=== PATIENT | female | born 1985 | race Caucasian/White ===

== ENCOUNTER 2025-06-07 02:30 | Day surgery (SDC) | payer OTHER, SELFPAY ==
[2025-05-26 10:44] VITALS: BMI 43.9
--- OUTSIDE RECORDS SUMMARY | 2025-06-07 02:31 | XMS_ITS | Encounter Summary ---
Author Organization [facility] Address [address] [place] [address] Care Team Providers Care Fisher Pot Name Role Phone Unavailable Primary Care Provider Unavailabl e Encounter Details Date Type Department Care Team (Latest Contact Info) Description 07/19/2008 Outpatient Historical [facility], [address] Heydi Corbett MD NO ADDRESS ON FILE Screening for Malignant Neoplasm of the Cervix Social History Tobacco Use Types Packs/Day Years Used Date Smoking Tobacco: Never Alcohol Use Standard Drinks/Week Comments No 0 (1 standard drink = 0.6 oz pur e alcohol) Comments No Sex and Gender Information Value Date Recorded Sex Assigned at Not on file 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
--- OUTSIDE RECORDS SUMMARY | 2025-06-07 02:31 | XMS_ITS | Encounter Summary ---
Author Organization [employer] Address 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 DIFFICILE DETECTION Routine 8 3:11 PM CARROTER FECAL LEUKOCYTES STAIN Routine 8 3:11 PM CARROTER OVA AND PARASITE SCREEN Routine 08/09/2008 3:11 PM CARROTER CBC WITH DIFFERENTIAL Stat 08/09/2008 2:54 PM CARROTER C-REACTIVE PROTEIN Stat 08/09/2008 2: 54 PM CARROTER TSH Stat 08/09/2008 2:54 PM CARROTER IGA Stat 08/09/2008 2:54 PM CARROTER COMPREHENSIVE METABOLIC PANEL Stat 08/09/2008 2:54 PM CARROTER POC , URINE Routine 08/09/2008 1:42 PM CARROTER documented in this encounter Results * PATHOLOGY (08/09/2008 3:21 PM CARROTER) FINAL REPORT [facility] [address], [place] [address] Patient: GI TERRAZAS : 1985 Procedure Date: 08/09/2008 Accession Date: 08/09/2008 Case No: [id number] Ordering Dr: AMY STEPHENSON Case types AW, BW, FW, NW and SH are performed by [facility], [place], [place] SURGICAL PATHOLOGY & NON-GYNECOLOGIC CYTOPATHOLOGY REPORT DIAGNOSIS SMALL INTESTINE, BIOPSY: - NO SIGNIFICANT HISTOPATHOLOGIC ABNORMALITY. LARGE INTESTINE, RANDOM, BIOPSY: - NO SIGNIFICANT HISTOPATHOLOGIC ABNORMALITY. Specimen Description: (1) Terminal ileum biopsy; (2) random colon biopsy. Operative Procedure: Colonoscopy. Patient Information/Histor y/Diagnosis: (1) and (2) Chronic diarrhea. Please look for collagenous colitis, microscopic colitis. Gross: Received are two containers labeled Gi Terrazas. Received in the first container, additionally labeled terminal ileum biopsy, is a 0.3 x 0.2 x 0.1-cm lowry tissue fragment. It is submitted in block A1. Received in the second container labeled random colon biopsy are five lowry tissue fragments ranging from 0.1 to 0.6 cm. All are submitted in block B1. [facility] 08.09.2008 04:07 pm Microscopic: The slides are labeled [id number] and Gi Terrazas. The terminal ileum biopsy shows no significant histopathologic abnormality. The inflammatory composition within the lamina propria appears appropriate. A single neutrophil is identified in a villous tip, but no additional active inflammation is seen. There is no blunting or distortion of the normal villous architecture. No inflammatory lesion or intestinal parasites are seen. The random colon biopsy consists of multiple mucosal fragments showing no significant histopathologic abnormality. The inflammatory composition within the lamina propria appears appropriate. No active inflammation or granulomas are seen. There are areas of interstitial hemorrhage, but ischemic changes are not evident. There is no significant architectural distortion or thickening of the subepithelial collagen plate. No hyperplastic or adenomatous changes are identified. GL/SEBASTIEN 08.10.2008 12:26 pm Staging Form: No. ELECTRONIC SIGNATURE FOR MARIAN LAGOS M.D.- 08/10/08 03:17 pm INTERFACE SYSTEM Specimen of unknown material (specimen) 08/09/2008 3:21 PM CARROTER Amy Stephenson MD PATHOLOGY/CYTOLOGY ORDERABLES E dited Performing Organization Address City/[facility] Co de Phone Number INTERFACE SYSTEM Refer to clinic/hospital department * OVA AND PARASITE SCREEN (08/09/2008 3:11 PM CARROTER) PRELIMINARY REPORT Pending [facility] FINAL REPORT Concentration : No ova or parasites seen. Trichrome: No ova or parasites seen. [facility] Stool specimen (specimen) 08/09/2008 3:11 PM CARROTER 08/09/2008 3:49 PM CARROTER Narrative INTERFACE SYSTEM - 08/11/2008 7:20 AM CARROTER [facility], [address] [place] [id number] Per[facility] by [facility], [address] [place] [id number] us Amy Stephenson MD MICROBIOLOGY - GENERAL ORDERABL ES Final Result Performing Organization Address [facility] Co de Phone Number INTERFACE SYSTEM Refer to clinic/hospital department [facility] CLIA# [id number] [place] [address] * FECAL LEUKOCYTES STAIN (08/09/2008 3:11 PM CARROTER) FINAL REPORT No WBC's seen. [facility] Stool specimen (specimen) 08/09/2008 3:11 PM CARROTER 08/09/2008 3:49 PM CARROTER us Amy Stephenson MD MICROBIOLOGY - GENERAL ORDERABL ES Final Result Performing Organization Address [facility] Phone Number INTERFACE SYSTEM Refer to clinic/hospital department [facility] CLIA# [id number] [address] [place] [address] * STOOL CULTURE (JOAQUIM,SHIG,CAMPY,[id number]) (08/09/2008 3:11 PM CARROTER) PRELIMINARY REPORT No Salmonella isolated. No Shigella isolated. No Escherichia coli serogroup O157:H7 isolated. [facility] FINAL REPORT No Salmonella isolated. No Shigella isolated. No Escherichia coli serogroup O157:H7 isolated. No Camplylobacter isolated. [facility] Stool specimen (specimen) 08/09/2008 3:11 PM CARROTER 08/09/2008 3:49 PM CARROTER us Aym Stephenson MD MICROBIOLOGY - GENERAL ORDERABL ES Final Result Performing Organization Address [facility] Phone Number INTERFACE SYSTEM Refer to clinic/hospital department [facility] CLIA# [id number] [address] [place] [address] * CLOSTRIDIUM DIFFICILE TOXIN (08/09/2008 3:11 PM CARROTER) FINAL REPORT NO Clostridium difficile Toxin A or B detected by EIA. A negative result does not rule out C. difficile associated diarrhea or colitis. [facility] Stool specimen (specimen) 08/09/2008 3:11 PM CARROTER 08/09/2008 3:49 PM CARROTER us Amy Stephenson MD MICROBIOLOGY - GENERAL ORDERABL ES Final Result Performing Organization Address [facility] de Phone Number INTERFACE SYSTEM Refer to clinic/hospital department [facility] CLIA# [id number] [address] [place] [address] * C-REACTIVE PROTEIN (08/09/2008 2:54 PM CARROTER) CRP 0.3 0.0 - 0.8 mg/dL [facility] Blood specimen (specimen) 08/09/2008 2:54 PM CARROTER 08/09/2008 3:10 PM CARROTER Amy Stephenson MD CHEMISTRY ORDERABLES Final Resu lt Performing Organization Address [facility] de Phone Number INTERFACE SYSTEM Refer to clinic/hospital department [facility] CLIA# [id number] [address] [place] [address] * (ABNORMAL) COMPREHENSIVE METABOLIC PANEL (08/09/2008 2:54 PM CARROTER) CALCIUM 9.6 8.6 - 10.2 mg/dL [facility] ALBUMIN 4.5 3.4 - 4.8 g/dL [facility] CHLORIDE 99 96 - 108 mmol/L [facility] CREATININE 0.71 0.51 - 0.95 mg/dL [facility] ALT 32(H) 0 - 31 U/L [facility] SODIUM 137 135 - 145 mmol/L [facility] ALKALINE PHOSPHATASE 58 35 - 104 U/L [facility] CO2 27 22 - 30 mmol/L [facility] BILIRUBIN TOTAL 0.5 0.2 - 1.0 mg/dL [facility] POTASSIUM 3.7 3.5 - 4.9 mmol/L [facility] TOTAL PROTEIN 7.4 6.3 - 8.6 g/dL [facility] GLUCOSE 79 65 - 99 mg/dL [facility] AST 26 12 - 32 U/L [facility] BUN 16 6 - 20 mg/dL [facility] GFR, >60 >=60 mL/min/1.7 sq meter [facility] GFR >60 >=60 mL/min/1.7 sq meter [facility] Comment: Modification of Diet in Renal Disease (MDRD) study formula. Estimated GFR rate interpretative information for both Americans and non- Americans is available on the [facility] Intranet at: [email or web address] Select: Lab Policies and Procedures Select: Reference Ranges - GFR Blood specimen (specimen) 08/09/2008 2:54 PM CARROTER 08/09/2008 3:10 PM CARROTER Amy Stephenson MD CHEMISTRY ORDERABLES Edited INTERFACE SYSTEM Refer to clinic/hospital department [facility] CLIA# [id number] [address] [place] [address] * CBC WITH DIFFERENTIAL (08/09/2008 2:54 PM CARROTER) RDW-STDEV 39.0 37.1 - 48.7 fL [facility] RBC 4.57 3.90 - 4.90 M/uL [facility] MCHC 33.6 31.5 - 35.5 % [facility] MCV 86.0 82.0 - 99.0 fL [facility] PLATELETS 280 140 - 350 K/uL [facility] HEMOGLOBIN 13.2 11.8 - 14.8 g/dL [facility] RDW 12.6 11.5 - 14.5 % [facility] WBC 6.7 4.0 - 9.8 K/uL [facility] MCH 28.9 27.2 - 32.6 pg [facility] MPV 11.5 9.3 - 12.4 fL [facility] HEMATOCRIT 39.3 35.5 - 44.0 % [facility] EOSINOPHILS 3 0 - 7 % [facility] EOSINOPHIL ABSOLUTE 0.17 0.00 - 0.70 K/uL [facility] LYMPHOCYTES 25 16 - 45 % [facility] LYMPHOCYTE ABSOLUTE 1.70 0.70 - 4.50 K/uL [facility] BASOPHILS 1 0 - 2 % [facility] BASOPHILS ABSOLUTE 0.04 0.00 - 0.20 K/uL [facility] MONOCYTES 6 3 - 13 % [facility] MONOCYTE ABSOLUTE 0.43 0.10 - 1.30 K/uL [facility] NEUTROPHILS 65 45 - 70 % [facility] NEUTROPHIL ABSOLUTE 4.38 1.90 - 7.00 K/uL [facility] Blood specimen (specimen) 08/09/2008 2:54 PM CARROTER 08/09/2008 3:10 PM CARROTER Amy Stephenson MD HEMATOLOGY ORDERABLES Edited INTERFACE SYSTEM Refer to clinic/hospital department [facility] CLIA# [id number] [address] [address] * TSH (08/09/2008 2:54 PM CARROTER) TSH 1.29 0.27 - 4.20 uU/mL [facility] Blood specimen (specimen) 08/09/2008 2:54 PM CARROTER 08/09/2008 3:10 PM CARROTER us Amy E Elwing MD CHEMISTRY ORDERABLES Final Resu lt Performing Organization Address [facility] de Phone Number INTERFACE SYSTEM Refer to clinic/hospital department [facility] CLIA# [id number] [address] [place] [address] * IGA (08/09/2008 2:54 PM CARROTER) IGA 95.8 83.0 - 336.0 mg/dL [facility] Blood specimen (specimen) 08/09/2008 2:54 PM CARROTER 08/09/2008 3:10 PM CARROTER us Amy Stephenson MD CHEMISTRY ORDERABLES Final Resu lt Performing Organization Address [facility] Phone Number INTERFACE SYSTEM Refer to clinic/hospital department [facility] CLIA# [id number] [address] [place] [address] * POC , URINE (08/09/2008 1:42 PM CARROTER) , URINE POC Negative Negative [facility] Urine specimen (specimen) 08/09/2008 1:42 PM CARROTER 08/09/2008 1:42 PM CARROTER Result Enrrique Stephenson MD POINT OF CARE TESTING Final Res ult Performing Organization Address [facility] de Phone Number INTERFACE SYSTEM Refer to clinic/hospital department [facility] CLIA# [id number] [address] [place] [address] documented in this encounter Visit Diagnoses Not on filedocumented in this encounter
--- OUTSIDE RECORDS SUMMARY | 2025-06-07 02:31 | XMS_ITS | Encounter Summary ---
Author Organization [email or web address] Address [address] [place] [address] Care Team Providers Care Health Care Marketing Manager Name Role Phone Unavailable Primary Care Provider Unavailabl e Encounter Details Date Type Department Care Team (Late st Contact Info) Description 07/19/2008 Outpatient Historical [facility] Corbett, Heydi Cruz MD NO ADDRESS ON FILE Diarrhea Social History Tobacco Use Types Packs/Day Years Used Date Smoking Tobacco: Never Alcohol Use Standard Drinks/Week Comments No 0 (1 standard drink = 0.6 oz pur e alcohol) Comments No Sex and Gender Information Value Date Recorded Sex Assigned at Not on file 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
--- OUTSIDE RECORDS SUMMARY | 2025-06-07 02:31 | XMS_ITS | Clinical Summary ---
Author Organization [employer] Address [address] [place] [address] Care Team Providers Care Business Insurance Agent Name Role Phone Unavailable Primary Care Provider Unavailabl e Allergies No known active allergies Medications LISINOPRIL/HYDRO CHLOROTHIAZIDE (LISINOPRIL-HYDR OCHLOROTHIAZIDE) 20-12.5 mg Oral Tab Take 1 Tab by mouth daily. 30 Tab 2 09/22/2008 Active Active Problems Problem Noted Date Diagnosed Date Hypertension 07/19/2008 Headache(784.0) 05/12/2008 Immunizations Immunization Administration Dates Next Due Influenza Vaccine Split 3+ Yrs IM 07/19/2008 Family History Medical History Relation Name Comments Hypertension Father Diabetes Maternal Grandfather Diabetes Mother Hypertension Mother Relation Name Status Comments Father Maternal Grandfather Mother Social History Tobacco Use Types Packs/Day Years Used Date Smoking Tobacco: Never Alcohol Use Standard Drinks/Week Comments No 0 (1 standard drink = 0.6 oz pur e alcohol) Comments No Sex and Gender Information Value Date Recorded Sex Assigned at Not on file 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 Gender Identity Not on file Sexual Orientation Not on file Last Filed Vital Signs Vital Sign Reading Time Taken Comments Blood Pressure 142/100 07/19/2008 9:03 AM CDT Pulse 74 07/19/2008 8:41 AM CDT Temperature - - Respiratory Rate 16 07/19/2008 8:41 AM CDT Oxygen Saturation - - Inhaled Oxygen Concentration - - Weight 109.8 kg (242 lb) 07/19/2008 8:41 AM CDT Height 167.6 cm (5' 6) 07/19/2008 8:41 AM CDT Body Mass Index 39.06 07/19/2008 8:41 AM CDT Plan of Treatment Health Maintenance Due Date Last Done Comments DTAP/TDAP/TD VACCINES (1 - Tdap) 2002 HEPATITIS B VACCINES (1 of 3 - 19+ 3-dose series) 02/28 HPV VACCINES (1 - 3-dose SCDM series) 2010 PAP SMEAR 2013 07/19/2008 CERVICAL CANCER SCREENING 07/19/2013 HPV/Cotest (21-29) 07/19/2013 07/19/2008 HPV/Cotest (30-65) 07/19/2013 07/19/2008 BREAST CANCER SCREENING 2023 INFLUENZA VACCINE (#1) 2025 07/19/2008 Procedures Procedure Name Priority Date/Time Associated Diagnosis Comments CERV/VAG CYTOPATH, THIN PREP IMAGR RFLX HPV Routine 07/19/2008 8:20 AM CDT from Last 3 Months or Most Recently Relevant to Health Maintenance Results * CERV/VAG CYTOPATH, THIN PREP STEEL DIVISION SUPERVISOR W/RFLX (07/19/2008 8:20 AM CDT) SOURCE Information not provided [facility] LAST MENSTRUAL PERIOD Information not provided [facility] CYTOTECHNOLOGI ST: LMT, CT(ASCP) [facility] Comment: Lab test performed by: [facility] [address] [address] LEONEL KIRBY MD REPORT STATUS FINAL [facility] ADEQUACY: Satisfactory for evaluation. Endocervical/trans formation zone component present. Age and/or menstrual status not provided [facility] CLINICAL INFORMATION Information not provided [facility] PREV BX: ansi Information not provided [facility] PAP INTERP Negative for intraepithelial lesion or malignancy. [facility] Inserting Operator Pap Comment ansi This Pap test has been evaluated with computer assisted technology. Based on the cytology result, reflex High Risk HPV DNA testing was not performed. Effective July 12, 2008, standard of care for the ThinPrep Pap, will be the Cytyc ThinPrep Imaging System. [facility] PREV PAP: Information not provided [facility] Specimen from uterine cervix (specimen) 07/19/2008 8:20 AM CDT 07/19/2008 11:06 PM CDT us Heydi Corbett MD PATHOLOGY/CYTOLOGY ORDERABLES Final Result INTERFACE SYSTEM Refer to clinic/hospital department [facility] CLIA# [id number] [address] [place] [address] from Last 3 Months or Most Recently Relevant to Health Maintenance
--- OUTSIDE RECORDS SUMMARY | 2025-06-07 02:31 | XMS_ITS | Clinical Summary ---
Author Organization [facility] Virtual Care Address [address] [place] [phone] Phone Care Team Providers Care Whitewasher Name Role Phone Referring, Unknown Vangie Amaro NP Primary Care Provider [phone] Allergies Active Allergy Reactions Criticality Noted Date Comments Banana Swelling,Angioedema High 03/09/2019 Oral tingling Medications lisinopriL (PRINIVIL,ZESTRIL ) 5 mg tabletIndications :Essential hypertension Take 1 tablet (5 mg total) by mouth daily 90 tablet 1 05/11/2024 Active Active Problems Problem Noted Date Diagnosed Date Polycystic ovary syndrome 03/09/2019 Assessment & Plan (01/27/2024 12:13 PM CDT): Patient does have noted hirsutism. We did discuss options for treatment of this including spironolactone daily versus trying a low-dose OCP. Risks were reviewed with each. She is aware if we would try an OCP we would have to keep close eye on her blood pressure. She will think about her options and let me know how she wishes to proceed. Primary hypertension 07/19/2008 Immunizations Immunization Administration Dates Next Due DTP 03/01/1988, 5,1983,08/09,1983 Hep A, Adult 01/26/2005,07/26/2004 IPV 07/26/2004 Influenza, Quadrivalent, Spl it, Preservative Free, Intramuscular 08/09/2023 Influenza, Trivalent, IM (MDV) 07/29/2013,2007 MMR 02/10/1991,06/26/1984 OPV 03/01/1988, 5,1983,08/09,1983 Td, adsorbed 05/13/1997 Tdap 03/31/2020 Typhoid H-P SQ/ID 07/26/2004 Surgical History Surgery Date Site/Laterality Comments TONSILLECTOMY AND ADENOIDECTOMY FOOT SURGERY Right tendon transfer as child WISDOM TOOTH EXTRACTION MYRINGOTOMY W/ TUBES COLONOSCOPY Medical History Medical History Date Comments Hypertension 2005 Menstrual problem Asthma Polycystic ovary syndrome Family History Medical History Relation Name Comments Allergy (severe) Father Prakash Hypertension Father Prakash Diabetes Maternal Grandfather Francois Colon polyps Mother Noris Diabetes Mother Noris Hypertension Mother Noris Obesity Mother Noris Lung cancer Paternal Grandfather Miscarriages / Stillbirths Sister 1 Bart Obesity Sister 2 Janene Relation Name Status Comments Father Prakash Maternal Grandfather Francois Mother Noris Paternal Grandfather Sister 1 Bart Sister 2 Janene Social History Tobacco Use Types Packs/Day Years Used Date Smoking Tobacco: Never Smokeless Tobacco: Never Tobacco Cessation:Counseling Given: Not Answered AUDIT-C Answer Date Recorded Q1: How often do you have a drink containing alcohol? Never 05/11/2024 Q2: How many drinks containi ng alcohol do you have on a typical day when you are drinking? Patient does not drink Q3: How often do you have si x or more drinks on one occasion? Never 05/11/2024 PHQ-2 Answer Date Recorded PHQ-2 Total Score (If total score is 3 or more points, staff should administer the PHQ-9) 0 05/11/2024 Education Answer Date Recorded What is the highest level of school you have completed or the highest degree you have received? Master's degree (e.g., MA, MS, Emilia, MEd, MEDICINE AND HEALTH SERVICE MANAGER, [employer]) 10/28/2023 Comments No Sex and Gender Information Value Date Recorded Sex Assigned at Not on file Legal Sex Female 8:51 AM CDT Gender Identity Not on file Sexual Orientation Not on file Obstetrics History Para Term AB IAB SAB Ectopic Multiple Livin g Live Births 0 0 0 0 0 0 0 0 0 0 0 Last Filed Vital Signs Vital Sign Reading Time Taken Comments Blood Pressure 130/84 05/11/2024 10:58 AM CDT Pulse 57 05/11/2024 10:58 AM CDT Temperature 36.6 C (97.8 F) 05/11/2024 10:58 AM CDT Respiratory Rate 18 05/11/2024 10:58 AM CDT Oxygen Saturation 99% 05/11/2024 10:58 AM CDT Inhaled Oxygen Concentration - - Weight 124.7 kg (275 lb) 02/15/2025 10:04 AM CDT Height 170.2 cm (5' 7) 02/15/2025 10:04 AM CDT Body Mass Index 43.07 02/15/2025 10:04 AM CDT Plan of Treatment Health Maintenance Due Date Last Done Comments Hepatitis C Screening 1983 Hepatitis B Screening 2001 HPV Vaccines (1 - 3-dose SCDM series) 2010 Covid-19 Vaccine ( season) 2024 01/05/2021 Regular Well Visit/Exam 18-64 01/26/2025 01/27/2024, 10/28/2023 Depression Screening 05/11/2025 05/11/2024, 01/27/2024, 10/28/2023 Influenza Vaccine (#1) 2025 , 07/29/2013, 07/19/2008 Breast Cancer Screening-Mammogram 02/15/2026 02/15/2025, 12/23/2023 Cervical Cancer Screening 01/26/20272023, 01/27/2024, 03/31/2020 DTaP/Tdap/Td Vaccine (7 - Td or Tdap) 03/31/2030 03/31/2020, 05/13/1997, 03/01/1988, Additional history exists Pneumococcal vaccine <65 Aged Out No longer eligible based on patient's age to complete this topic Varicella Vaccines Discontinued Procedures Procedure Name Priority Date/Time Associated Diagnosis Comments SCREENING MAMMOGRAM BILATERAL W TOO Schedule Routine, Read Routine (OP Routine) 02/15/2025 10:15 AM CDT Screening mammogram, encounter for HIGH RISK HPV DNA DETECTION WITH GENOTYPING Routine 01/27/2024 12:15 PM CDT Encounter for gynecological examination with Papanicolaou smear of cervix from Last 3 Months or Most Recently Relevant to Health Maintenance Results * Screening Mammogram Bilateral W Too (02/15/2025 10:15 AM CDT) Anatomical Region Laterality Modality Breast Bilateral Mammography Impressions 02/15/2025 10:32 AM CDT Bilateral No evidence of malignancy in either breast. OVERALL BI-RADS FINAL ASSESSMENT: 1 - Negative RECOMMENDATION: Recommend bilateral annual screening mammography. Narrative 02/15/2025 10:32 AM CDT EXAMINATION: Screening Mammogram Bilateral W Too: 02/15/2025 COMPARISON: Relevant prior studies available at the time of interpretation were reviewed. TECHNIQUE: Mammography was performed with 2D and digital breast tomosynthesis (DBT) images. CAD was utilized. BREAST PARENCHYMAL COMPOSITION: There are scattered areas of fibroglandular density. FINDINGS: Bilateral There is no suspicious mass, calcification, or architectural distortion in either breast. us Self Screening Mammogram IMG MAMMO PROCEDURES Fi nal Result * High Risk HPV DNA Detection with Genotyping (Molecular component) (01/27/2024 12:15 PM CDT) HPV HR 16 Not Detected Not Detected [facility] Comment:Testing performed by : [facility], [address] [place]., [address] HPV HR 18 Not Detected Not Detected [facility] Comment:Testing performed by : [facility], [address] [place] [place] [address] HPV HR Non 16/18 Not Detected Not Detected [facility] Comment: Interpretive Data Nucleic acid amplification for detection of high-risk Human Papilloma virus (HPV) is performed by the [employer] Ambika 6800 HPV test. This assay specifically detects HPV-16 and HPV-18 genotypes. The following HPV genotypes are detected as high-risk HPV: HPV-31, 33, 35, ,39, 45, 51, 52, 56, 58, 59, 66, and 68. This assay has been approved by the [place] Food and Drug Administration for detection of HPV in cervical specimens collected by a physician using an endocervical brush/spatula or cervical broom and placed in the ThinPrep Pap Test PreservCyt collection containers. The performance characteristics of this test have been verified by the [facility] Molecular Infectious Disease laboratory. Correlate with separately reported cytology results, as applicable. Interpretive data last revised 23 Testing performed by: [facility], [address] [place]., [address] Endocervical 01/27/2024 12:1 5 PM CDT 02/03/2024 1:14 PM CDT Narrative [facility] - 02/04/2024 5:07 AM CDT Clinical history and diagnosis->Screening Number of vials->1 Testing type->Screening Last menstrual period (date if known)->01/13/24 Celia Celaya NP LAB BODY FLUIDS AND STOOLS ORDER AMY Final Result [facility] [id number] [place] [address] [facility] from Last 3 Months or Most Recently Relevant to Health Maintenance Insurance [employer] Address: [facility] [id number] [place] [id number] Care Teams Whitewasher Relationship Specialty Start Date End Date Vangie Tavares NP [address] [facility] [address] [place] [address] PCP - General Family Medicine 02/15/25 Referring, Wes, Pediatrics 07/22/23
[2025-06-07 08:27] VITALS: BP 131/82; PULSE 66; RESP 19; TEMP 36.1; O2SAT 100; BMI 43.4
[2025-06-07 08:34] LABS: BEDSIDEPREGUCG Negative (Negative)
--- NOTE | 2025-06-07 08:34 | WPDANESEPPF ---
Anes - Initial Pre Proc Eval Procedure: Operation Date: 06/07/25 09:30 Proposed Procedures p Colonoscopy - Jayson Salazar MD Date/Time: 06/07/25 08:34 Surgeon: Jayson Salazar MD Pre Op Diagnosis: Other specified diseases of anus and rectum Patient Data Age: 40 Gender: F Height: 1.7 m Weight: 125.8 kg Last Vital Signs Temp 36.1 C L 06/07/25 08:27 Pulse 66 06/07/25 08:27 Resp 19 06/07/25 08:27 BP 131/82 06/07/25 08:27 Pulse Ox 100 06/07/25 08:27 O2 Del Method Room Air 06/07/25 08:27 Allergies Allergy/AdvReac Type Severity Reaction Status Date / Time banana Allergy Swelling Verified 06/07/25 08:26 of Lip/Tongue/Throat Home Medications ?Medication ?Instructions ?Recorded ?Confirmed ?Type lisinopril 5 mg tablet 5 mg PO DAILY 02/26/25 06/07/25 History Patient hx anesthesia problems: none Family hx anesthesia problems: none Results Review: All pre-operative results and documents have been reviewed as part of the pre-operative evaluation. [facility] Past Medical History Medical History (Updated 03/01/25 @ 10:11 by PALLAVI Miranda) Obese Constipation Loose stools Tenesmus (rectal) Change in bowel habits Rectal pain Blood in stool Allergies Asthma Hypertension PCOS (polycystic ovarian syndrome) Surgical History Surgical History (Updated 02/26/25 @ 11:58 by Rita Ritchie CMA) History of tonsillectomy and adenoidectomy H/O Achilles tendon repair Family History Family History (Updated 02/26/25 @ 11:54 by Rita Ritchie CMA) Mother Diabetes mellitus Heart disease Hypertension Father Hypertension Sibling Heart disease Grandparent Diabetes mellitus Hypertension Grandparent Cancer Social History Social History (Updated 02/26/25 @ 11:51 by Rita Ritchie CMA) Smoking status: Never smoker Alcohol intake: current Drinks per week: 4 Substance use: never Anes - Eval Final PreProcedure Day of Procedure 06/07/25 08:34 Patient weight: morbidly obese Heart: regular rate and rhythm Lungs: clear to auscultation Airway: Mallampati scale class II Neurological: alert and oriented Last oral intake: >/= 8 hours ASA classification: III Emergent: no Anesthetic plan: proceed Anesthesia type and monitoring: general GIVS and standard monitoring Results Review: All pre-operative results and documents have been reviewed as part of the pre-operative evaluation. Informed Consent: The patient's anesthetic plan and its attendant risks and benefits were discussed with the patient/family/POA. Questions were solicited and answers provided to the satisfaction of the patient/family/POA.
[2025-06-07] MEDS: LACTATED RINGERS 1,000 ML 150 ML IV CONT (08:38)
--- NOTE | 2025-06-07 09:14 | PM.HPGS ---
History of Present Illness History of Present Illness Consent: Risks, benefits, and alternatives have been discussed and questions answered. Patient agrees to proceed with procedure. Chief complaint: Other specified diseases of anus and rectum Narrative: Minerva Terrazas is a 40 year old female with intermittent blood in stool, last colonoscopy 2011 Review of Systems Review of Systems: All systems reviewed & are unremarkable except as noted in HPI and below PMFSH Past Medical History Medical History (Updated 03/01/25 @ 10:11 by PALLAVI Miranda) Obese Constipation Loose stools Tenesmus (rectal) Change in bowel habits Rectal pain Blood in stool Allergies Asthma Hypertension PCOS (polycystic ovarian syndrome) Surgical History Surgical History (Updated 02/26/25 @ 11:58 by Rita Ritchie CMA) History of tonsillectomy and adenoidectomy H/O Achilles tendon repair Family History Family History (Updated 02/26/25 @ 11:54 by Rita Ritchie CMA) Mother Diabetes mellitus Heart disease Hypertension Father Hypertension Sibling Heart disease Grandparent Diabetes mellitus Hypertension Grandparent Cancer Social History Social History (Updated 02/26/25 @ 11:51 by Rita Ritchie CMA) Smoking status: Never smoker Alcohol intake: current Drinks per week: 4 Substance use: never Meds Home Medications and Allergies Home Medications ?Medication ?Instructions ?Recorded ?Confirmed ?Type lisinopril 5 mg tablet 5 mg PO DAILY 02/26/25 06/07/25 History Allergies Allergy/AdvReac Type Severity Reaction Status Date / Time banana Allergy Swelling Verified 06/07/25 08:26 of Lip/Tongue/Throat Vital Signs Vital Signs - 24 hr 06/07/25 08:27 Temperature 96.9 F L Pulse Rate 66 Respiratory Rate 19 Blood Pressure 131/82 Pulse Oximetry 100 Oxygen Delivery Room Air Exam Const: General: comfortable and no acute distress HENMT: Face/Nose/Sinus: Normal nares present Eyes: General: appearance normal, both eyes and all related structures Neck: Neck: no JVD Resp: Auscultation: clear to auscultation bilaterally Cardio: Rate: regular rate Rhythm: regular rhythm GI: Inspection: non-distended GI Palp: Yes Soft to palpation Skin: General skin exam: normal color Neuro: Speech: normal speech Extrem: General: normal to inspection Psych: Mental Status: mental status grossly normal Assessment and Plan Assessment and plan (1) Blood in stool: Code(s): K92.1 - Melena Status: Acute Assessment and Plan: colonoscopy
[2025-06-07 09:34] VITALS: BP 101/67; PULSE 70; RESP 17; O2SAT 99
[2025-06-07 09:44] VITALS: BP 109/75; PULSE 66; RESP 15; O2SAT 100
[2025-06-07 09:54] VITALS: BP 112/77; PULSE 61; RESP 20; O2SAT 100
== END 2025-06-07 10:08 | disposition home or self-care (01) ==
PROVIDERS: Anesthesiology; PCP Nurse Practitioner Family; Referring Provider Nurse Practitioner Family; Visit Provider Internal Medicine Gastroenterology
PROC: 0DJD8ZZ Inspection of Lower Intestinal Tract, Via Natural or Artificial Opening Endoscopic (ICD-10-PCS; CPT 45378; principal; 2025-06-07 09:30)
DX: K92.1 Melena (principal); K64.8 Other hemorrhoids; E66.01 Morbid (severe) obesity due to excess calories; Z68.41 Body mass index [BMI] 40.0-44.9, adult
CPT/HCPCS: 45378; J2003; J2704; J7120